=== PATIENT | male | born 1960 | race Caucasian/White ===

== ENCOUNTER → 2017-05-12 | Outpatient (CLI) | payer BC | END | disposition home or self-care (01) | LOC: GMAJ 10:53 | PROVIDERS: ATTEND Family Medicine | DX: Z00.00 Encounter for general adult medical examination without abnormal findings (principal) ==

== ENCOUNTER → 2017-05-17 | Outpatient (CLI) | payer BC | END | disposition home or self-care (01) | LOC: GMAJ 14:28 | PROVIDERS: ATTEND Family Medicine | DX: M54.2 Cervicalgia (principal) ==

== ENCOUNTER 2017-09-02 09:57 | Emergency (ER) | payer BC ==
--- NOTE | 2017-09-02 10:06 | ED.PDOC ---
History of Present Illness - General Chief Complaint: General Stated Complaint: low heart rate Time Seen by Provider: 09/02/17 10:05 Source: patient, family - Exam Limitations: no limitations - History of Present Illness Initial Comments: Maicol Rush 57 y/o male with history of A.fib and HTN on B maria elena for his rate control brought by stating heart rate was low this am about 34 bpm and felt some tightening on his throat which went away on arrival at ER.Stated his metoprolol dose was increased to 100mg and since then danette heart rate getting low. Timing/Duration: 1-3 hours Location: other - NO CHEST PAIN Prior Chest Pain/Cardiac Workup: echocardiography Improving Factors: nothing Worsening Factors: nothing Nitro Today/Relief: no nitro taken today Aspirin Treatment Today: 81 mg x 1, provided at home Associated Symptoms: denies symptoms, other - see hpi Allergies/Adverse Reactions: Allergies NO KNOWN ALLERGY Allergy (Verified 09/02/17 10:20) Home Medications: Ambulatory Orders Apixaban [Eliquis] 2.5 mg PO BID 09/02/17 Citalopram Hydrobromide [CeleXA] 20 mg PO DAILY 09/02/17 Lisinopril 40 mg PO DAILY 09/02/17 Metoprolol Tartrate 100 mg PO BID 09/02/17 Review of Systems - Review of Systems EENTM: States: no symptoms reported Respiratory: States: no symptoms reported Cardiology: States: see HPI Gastrointestinal/Abdominal: States: no symptoms reported All other Systems: Reviewed and Negative, No Change from Baseline Past Medical History (General) - Patient Medical History Hx Cardiac Disorders: Yes - a.fib Hx Hypertension: Yes Surgical History: no surgical history - Social History Hx Tobacco Use: No Hx Chewing Tobacco Use: No Hx Physical Abuse: No Hx Emotional Abuse: No Hx Suspected Abuse: No Family Medical History - Family History Father Family History: Unknown Living Status: Unknown Hx Family Hypertension: Yes - mom Hx Family Diabetes: Yes - parents Hx Family Cancer: Yes - sister Hx Family;Other: Rheumatoid arthritis-dad Physical Exam - Physical Exam General Appearance: Alert, Comfortable, No apparent distress Eyes, Ears, Nose, Throat Exam: PERRL/EOMI, normal ENT inspection Neck: non-tender, supple, normal inspection Respiratory: chest non-tender, lungs clear, normal breath sounds, no respiratory distress Cardiovascular/Chest: normal peripheral pulses, regular rate, rhythm, no murmur Peripheral Pulses: radial,right: 2+, radial,left: 2+ Gastrointestinal/Abdominal: normal bowel sounds, non tender, soft, no organomegaly Extremity: normal range of motion, non-tender, no calf tenderness Neurologic: alert, oriented x 3 Skin Exam: normal color, warm/dry Progress - Progress Progress: 09/02/17 10:52 Last Vital Signs Temp 97.9 F 09/02/17 10:15 Pulse 68 09/02/17 10:28 Resp 20 09/02/17 10:15 BP 163/103 09/02/17 10:15 Pulse Ox 97 09/02/17 10:15 - Results/Orders Results/Orders: Last Vital Signs Temp 97.9 F 09/02/17 10:15 Pulse 68 09/02/17 10:28 Resp 20 09/02/17 10:15 BP 163/103 09/02/17 10:15 Pulse Ox 97 09/02/17 10:15 - EKG/XRAY/CT EKG: Sinus, no ST T wave changes Comments: Heart rate -64;left atrial enlargement Departure - Departure Clinical Impression: Bradycardia, drug induced, History of atrial fibrillation Hypertension Qualifiers: Hypertension type: unspecified Qualified Code(s): I10 - Essential (primary) hypertension Time of Disposition: 12:26 Disposition: Discharge to Home or Self Care Condition: Good Departure Forms: ED Discharge - Pt. Copy, Patient Portal Self Enrollment Instructions: DI for Atrial Fibrillation, Atrial Fibrillation Referrals: Shashank Blanchard MD [Primary Care Provider] - 1-2 Weeks Home Medications: Ambulatory Orders Apixaban [Eliquis] 2.5 mg PO BID 09/02/17 Citalopram Hydrobromide [CeleXA] 20 mg PO DAILY 09/02/17 Lisinopril 40 mg PO DAILY 09/02/17 Metoprolol Tartrate 100 mg PO BID 09/02/17 Additional Instructions: Follow up with primary Md 09/06/2017 as needed:Reduce dose of Metoprolol to 50 mg po bid;Keep appointment with Compliance Review Specialist
[2017-09-02 10:20] VITALS: TEMP 97.9
[2017-09-02 14:57] VITALS: BP 161/93; O2SAT 98
== END 2017-09-02 12:35 | disposition home or self-care (01) ==
LOC: ER 09:57
DX: R00.1 Bradycardia, unspecified (principal); T44.7X5A Adverse effect of beta-adrenoreceptor antagonists, initial encounter; I48.91 Unspecified atrial fibrillation; I10 Essential (primary) hypertension; Z79.899 Other long term (current) drug therapy; Y92.009 Unspecified place in unspecified non-institutional (private) residence as the place of occurrence of the external cause

== ENCOUNTER → 2017-12-07 | Outpatient (CLI) | payer BC, OTHER ==
--- NOTE | 2017-12-07 21:07 | MRI ---
EXAM DESCRIPTION: Lumbar Spine w/o Contrast MRI. CLINICAL HISTORY: LUMBAR RADICULOPATHY. Left leg pain and numbness. COMPARISON: Radiographs lumbar spine 11/24/2017. CT scan abdomen 11/25/2017. TECHNIQUE: Multiplanar, multiple standard sequences, non contrast MRI, lumbar spine. FINDINGS: L5-S1: Disc desiccation anterior Modic type II endplate reactive changes. Grade 1 anterolisthesis. Posterior disc bulge 4 mm not touching the thecal sac and bilateral L5 spondylolysis. Minimal marrow edema abutting the defects bilaterally. Bilateral disc and bone complex foraminal stenosis. Well-circumscribed bright T1 and T2 signal in the bilateral pedicles with no signal on inversion recovery. L4-5: Disc desiccation posterior disc space loss and tiny posterior disc bulge. Minimal flavum ligament hypertrophy. Mild canal narrowing. Mild right foraminal narrowing and moderate left foraminal narrowing. Minimal bilateral facet arthrosis. L3-4: Normal signal in the disc. Disc space preserved. Posterior elements unremarkable. Canal and foramina are patent. L2-3: Normal signal in the disc and disc space preserved. Posterior elements unremarkable. Canal and foramina are patent. L1-2: Normal signal in the disc and disc space preserved. Posterior elements unremarkable. Canal and foramina are patent. Small focus of bright T1 and T2 signal in the L2 vertebral body with minimal signal on inversion recovery sequence. T12-L1: Normal signal in the disc with disc space preserved. No disc bulging. Posterior elements unremarkable. Canal and foramina are patent. Conus terminates at T12-L1. No scoliosis. Paravertebral soft tissues unremarkable.. Marrow reconversion is noted in the sacrum and some of the vertebral bodies. Otherwise normal marrow signal in the remaining vertebral bodies and the posterior elements. Vertebral bodies are not compressed at any level. IMPRESSION: 1. Moderate spondylosis anterior L5-S1 disc desiccation. Grade 1 anterolisthesis. Bilateral L5 spondylolysis. Bilateral compromise of the exiting L5 nerves by disc and bone in the foramina. Correlate for bilateral L5 radiculopathy. 2. L4-5 disc desiccation, posterior disc space loss, and tiny bulge. No canal or foraminal stenosis. 3. Hemangiomas in the bilateral L5 pedicles. Hemangioma in the L2 vertebral body. Electronically signed by: Catrachito Sawant MD 12/07/2017 9:06 PM CDT
== END ==
LOC: MRI 12:54
PROVIDERS: ATTEND Family Medicine
DX: M54.16 Radiculopathy, lumbar region (principal)

== ENCOUNTER → 2018-08-12 | Outpatient (CLI) | payer BC | LOC: GMAJ 10:37 | PROVIDERS: ATTEND Family Medicine | DX: Z12.5 Encounter for screening for malignant neoplasm of prostate (principal) ==